=== PATIENT | female | born 1990 | race Caucasian/White ===

== ENCOUNTER 2017-03-09 11:54 | Emergency (ER) | payer MEDICAID ==
--- NOTE | 2017-03-09 12:19 | EDM.PDOC ---
ED HPI GENERAL MEDICAL PROBLEM - General Chief Complaint: Abdominal Pain Stated Complaint: PAIN LOWER LEFT SIDE Time Seen by Provider: 03/09/17 12:19 Source of Information: Reports: Patient History Limitations: Reports: No Limitations - History of Present Illness INITIAL COMMENTS - FREE TEXT/NARRATIVE: 27-year-old female presents to the ED with diffuse left-sided abdominal pain that she awoke with suddenly 2 days ago. pain is continued to be present and is quite severe rates it currently as 9 out of 10. Last night for a while it was 10 out of 10. pain is constant with a colicky component. It hurts to deep breathe on the left side. Pain is felt in the left flank area seems to spread to the left lower quadrant and suprapubic area. states bowel function is normal. It does not relieve or make the pain worse. similarly no urinary tract dysfunction. she reports she was seen in [place] clinic last night and had normal labs and a normal urinalysis reported. she states her last normal menstrual period was back in October. She has oligomenorrhea related to polycystic ovarian disease. Last ultrasound was done about a year ago and revealed no cysts on the ovary. no history of renal lithiasis. No history of previous abdominal surgery. pain is currently 9 out of 10 and is associated with nausea. She is able to eat small quantities of food the last few days. No associated fever or chills. Onset: Sudden Onset Date: 03/07/17 ( awoke with symptoms about 7 in the morning) Duration: Day(s): ( and they have persisted.), Constant, Getting Worse Location: Reports: Abdomen ( left mid and lower quadrant of the abdomen laterally.) Quality: Reports: Ache, Sharp ( pain is constant with occasional colicky sharp stabbing component), Stabbing, Other Severity: Severe Improves with: Reports: None ( current relates her pain as 9 out of 10.), Rest Worsens with: Reports: Movement ( she is walking very slowly.) Context: Denies: Activity ( not moving or breathing.), Exercise, Lifting, Sick Contact, Trauma, Other Associated Symptoms: Reports: Loss of Appetite, Nausea/Vomiting. 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 (see below) Other Treatments DIE MACHINE OPERATOR: nothing Left Abdomen Pain Score (Numeric/FACES): 9 - Related Data Allergies Allergy/AdvReac Type Severity Reaction Status Date / Time No Known Allergies Allergy Verified 03/09/17 12:13 Home Meds: Home Meds Levothyroxine 75 mg PO DAILY 03/09/17 [History] Zolpidem Tartrate [Ambien] 5 mg PO BEDTIME 03/09/17 [History] glyBURIDE [Glyburide] 4 mg PO DAILY 03/09/17 [History] metFORMIN [Glucophage] 1,000 mg PO BID 03/09/17 [History] traMADol [Ultram] 50 mg PO ASDIRECTED 03/09/17 [History] Past Medical History Respiratory History: Reports: Asthma Genitourinary History: Reports: UTI, Recurrent, Other (See Below) Other Genitourinary History: yeast infection. 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 this is being worked up. Psychiatric History: Reports: Anxiety Endocrine/Metabolic History: Reports: Diabetes, Type II ( currently on metformin and glyburide.), Hypothyroidism - Past Surgical History Female Surgical History: Reports: Other (See Below) ED ROS GENERAL - Review of Systems Review Of Systems: See Below Constitutional: Reports: Malaise, Weakness, Fatigue, Decreased Appetite. Denies : Fever, Chills, Weight Loss HEENT: Reports: No Symptoms Respiratory: Reports: No Symptoms, Other Cardiovascular: Reports: No Symptoms ( hurts to date the deep breath on the left side.) Endocrine: Reports: Fatigue, High Glucose ( has type 2 diabetes.) GI/Abdominal: Reports: Abdominal Pain, Decreased Appetite, Nausea. Denies: Vomiting ( the history of present illness) : Reports: No Symptoms, Other ( told that she has polycystic ovarian disease and tends to obviously very irregularly i.e. oligomenorrhea) Musculoskeletal: Reports: Shoulder Pain ( bilateral shoulder pain of unclear etiology) Skin: Reports: No Symptoms Psychiatric: Reports: No Symptoms Hematologic/Lymphatic: Reports: No Symptoms Immunologic: Reports: Seasonal Allergy ED EXAM, GI/ABD - Physical Exam Exam: See Below Exam Limited By: No Limitations General Appearance: Alert, WD/WN, Mild Distress Eyes: Bilateral: Normal Appearance Throat/Mouth: Normal Inspection, Normal Lips, Normal Oropharynx Head: Atraumatic, Normocephalic Neck: Normal Inspection, Supple, Non-Tender, Full Range of Motion. No: Lymphadenopathy (L), Lymphadenopathy (R) Respiratory/Chest: No Respiratory Distress, Lungs Clear, Normal Breath Sounds, No Accessory Muscle Use Cardiovascular: Normal Peripheral Pulses, Regular Rate, Rhythm, No Edema, No Murmur GI/Abdominal Exam: Normal Bowel Sounds, Soft, No Organomegaly, No Abnormal Bruit , No Mass, Pelvis Stable, Tender ( left lower quadrant left), Other. No: Rigid ( tenderness in the left lower quadrant with no rebound tenderness or guarding) , Rebound Back Exam: Normal Inspection, Full Range of Motion. No: CVA Tenderness (L), CVA Tenderness (R), Decreased Range of Motion, Paraspinal Tenderness Extremities: Normal Inspection, Normal Range of Motion, Non-Tender, No Pedal Edema Neurological: Alert, Oriented, CN II-XII Intact, Normal Cognition Psychiatric: Normal Affect, Normal Mood Skin Exam: Warm, Dry, Intact, Normal Color, No Rash Course - Vital Signs Last Recorded V/S: Last Vital Signs Temp 36.2 C 03/09/17 12:21 Pulse 90 03/09/17 12:21 Resp 20 03/09/17 12:21 BP 130/93 H 03/09/17 12:21 Pulse Ox 98 03/09/17 12:21 - Orders/Labs/Meds Orders: Active Orders 24 hr Category Date Time Status Abdomen 1V Flat [CR] Stat Exams 03/09/17 12:31 Taken Ketorolac [Toradol] Med 03/09/17 12:45 Active 30 mg IVPUSH ONETIME Medication Orders Ketorolac Tromethamine (Toradol) 30 mg IVPUSH ONETIME NATHALIE Last Admin: 03/09/17 13:01 Dose: 30 mg Labs: Laboratory Tests 03/09/17 03/09/17 03/09/17 Range/Units 12:44 13:00 13:00 WBC 12.08 H (3.98-10.04) K/mm3 RBC 5.01 (3.98-5.22) M/mm3 Hgb 14.8 (11.2-15.7) gm/L Hct 42.3 (34.1-44.9) % MCV 84.4 (79.4-94.8) fl MCH 29.5 (25.6-32.2) pg MCHC 35.0 (32.2-35.5) g/dl RDW Std Deviation 37.8 (36.4-46.3) fL Plt Count 252 (182-369) K/mm3 MPV 10.4 (9.4-12.3) fl Neutrophils % (Manual) 65 H (40-60) % Band Neutrophils % 0 (0-10) % Lymphocytes % (Manual) 18 L (20-40) % Atypical Lymphs % 7 % Monocytes % (Manual) 9 (2-10) % Eosinophils % (Manual) 1 (0.7-5.8) % Basophils % (Manual) 0 L (0.1-1.2) Platelet Estimate Adequate Plt Morphology Comment Normal RBC Morph Comment Normal Sodium 138 (136-145) mEq/L Potassium 3.8 (3.5-5.1) mEq/L Chloride 102 (98-107) mEq/L Carbon Dioxide 29 (21-32) mEq/L Anion Gap 10.8 (5-15) BUN 14 (7-18) mg/dL Creatinine 0.7 (0.55-1.02) mg/dL Est Cr Clr Drug Dosing 119.62 mL/min Estimated GFR (MDRD) > 60 (>60) mL/min BUN/Creatinine Ratio 20.0 H (14-18) Glucose 301 H (74-106) mg/dL Calcium 9.2 (8.5-10.1) mg/dL Total Bilirubin 0.6 (0.2-1.0) mg/dL AST 15 (15-37) U/L ALT 26 (14-59) U/L Alkaline Phosphatase 91 (46-116) U/L C-Reactive Protein 5.8 H* (<1.0) mg/dL Total Protein 7.4 (6.4-8.2) g/dl Albumin 3.4 (3.4-5.0) g/dl Globulin 4.0 gm/dL Albumin/Globulin Ratio 0.9 L (1-2) Lipase 103 (73-393) U/L HCG, Qual (NEGATIVE) Urine Color Yellow (Yellow) Urine Appearance Clear (Clear) Urine pH 6.0 (5.0-8.0) Ur Specific Faber > or = 1.030 (1.005-1.030) Urine Protein 3+ H (Negative) Urine Glucose (UA) 2+ H (Negative) Urine Ketones 2+ H (Negative) Urine Occult Blood Trace-lysed H (Negative) Urine Nitrite Negative (Negative) Urine Bilirubin 1+ H (Negative) Urine Urobilinogen 0.2 (0.2-1.0) Ur Leukocyte Esterase Negative (Negative) Urine RBC 0-5 (0-5) /hpf Urine WBC 0-5 (0-5) /hpf Ur Epithelial Cells 0-5 (0-5) /hpf Urine Bacteria Few (FEW) /hpf Hyaline Casts 0-5 (0-5) /lpf Urine Mucus Moderate H (FEW) /hpf 03/09/17 Range/Units 13:00 WBC (3.98-10.04) K/mm3 RBC (3.98-5.22) M/mm3 Hgb (11.2-15.7) gm/L Hct (34.1-44.9) % MCV (79.4-94.8) fl MCH (25.6-32.2) pg MCHC (32.2-35.5) g/dl RDW Std Deviation (36.4-46.3) fL Plt Count (182-369) K/mm3 MPV (9.4-12.3) fl Neutrophils % (Manual) (40-60) % Band Neutrophils % (0-10) % Lymphocytes % (Manual) (20-40) % Atypical Lymphs % % Monocytes % (Manual) (2-10) % Eosinophils % (Manual) (0.7-5.8) % Basophils % (Manual) (0.1-1.2) Platelet Estimate Plt Morphology Comment RBC Morph Comment Sodium (136-145) mEq/L Potassium (3.5-5.1) mEq/L Chloride (98-107) mEq/L Carbon Dioxide (21-32) mEq/L Anion Gap (5-15) BUN (7-18) mg/dL Creatinine (0.55-1.02) mg/dL Est Cr Clr Drug Dosing mL/min Estimated GFR (MDRD) (>60) mL/min BUN/Creatinine Ratio (14-18) Glucose (74-106) mg/dL Calcium (8.5-10.1) mg/dL Total Bilirubin (0.2-1.0) mg/dL AST (15-37) U/L ALT (14-59) U/L Alkaline Phosphatase (46-116) U/L C-Reactive Protein (<1.0) mg/dL Total Protein (6.4-8.2) g/dl Albumin (3.4-5.0) g/dl Globulin gm/dL Albumin/Globulin Ratio (1-2) Lipase (73-393) U/L HCG, Qual Negative (NEGATIVE) Urine Color (Yellow) Urine Appearance (Clear) Urine pH (5.0-8.0) Ur Specific Faber (1.005-1.030) Urine Protein (Negative) Urine Glucose (UA) (Negative) Urine Ketones (Negative) Urine Occult Blood (Negative) Urine Nitrite (Negative) Urine Bilirubin (Negative) Urine Urobilinogen (0.2-1.0) Ur Leukocyte Esterase (Negative) Urine RBC (0-5) /hpf Urine WBC (0-5) /hpf Ur Epithelial Cells (0-5) /hpf Urine Bacteria (FEW) /hpf Hyaline Casts (0-5) /lpf Urine Mucus (FEW) /hpf Meds: Medications Generic Name Dose Route Start Last Admin Trade Name Freq PRN Reason Stop Dose Admin Ketorolac Tromethamine 30 mg 03/09/17 12:45 03/09/17 13:01 Toradol IVPUSH 30 mg ONETIME NATHALIE Administration Discontinued Medications Generic Name Dose Route Start Last Admin Trade Name Freq PRN Reason Stop Dose Admin Dicyclomine HCl 20 mg 03/09/17 14:20 Bentyl PO 03/09/17 14:21 ONETIME ONE Hydromorphone HCl 1 mg 03/09/17 12:32 03/09/17 13:03 Dilaudid IVPUSH 03/09/17 12:33 1 mg ONETIME ONE Administration Sodium Chloride 1,000 mls @ 500 mls/hr 03/09/17 12:32 03/09/17 12:59 Normal Saline IV 03/09/17 14:31 500 mls/hr ONETIME ONE Administration Magnesium Citrate 300 ml 03/09/17 14:21 03/09/17 14:53 Citrate Of Magnesia PO 03/09/17 14:22 300 ml ONETIME ONE Administration Metoclopramide HCl 7.5 mg 03/09/17 12:33 03/09/17 12:59 Reglan IVPUSH 03/09/17 12:34 7.5 mg ONETIME ONE Administration - Radiology Interpretation Free Text/Narrative:: 27-year-old female presents to the ED with acute onset of left sided abdominal pain is felt mostly in the lateral abdominal wall almost in the midaxillary line. it does radiate up slightly towards the flank and it does hurt to deep breathing on the left side. pain is spread to the left lower quadrant and suprapubic area over the last 24 hours. suddenly and awoke her from sleep about 0 100 hours March 10. she was seen in [facility] clinic last night and had a negative urinalysis and negative lab work apparently. no x-rays or imaging studies were carried out. by history she has polycystic ovarian disease with last normal menstrual period in October. She does not use any form of contraception. She is a type II diabetic taking metformin and glyburide. Also the present in all 4 quadrants tenderness in the left lower quadrant but no peritoneal signs evident. My initial impression is likely ruptured ovarian cyst. Plan 1 view of the abdomen to be done routine labs to include a serum lipase level. CRP and a urinalysis and an hCG. IV normal saline started at 500 mils per hour given Dilaudid 1 mg IV with Reglan 7.5 mg IV and Toradol 30 mg IV for acute pain relief. - Re-Assessments/Exams Free Text/Narrative Re-Assessment/Exam: 03/09/17 13:50 labs reveal an elevated white count at 12.08. Differential is pending hemoglobin is 14.8 hematocrit of 42.3. plan is to 52,000. Chemistry shows sodium 1:30 potassium 3.8 chloride 102 bicarbonate 29 and a gap is 10.8 glucose is elevated at 301 of note she is a type II diabetic urinalysis is clear. CRP is elevated at 5.8. beta-hCG is negative. Lipase 103. KUB reveals increased stool throughout the entire colon but left hemicolon is very densely impacted with stool down to the rectal vault. 03/09/17 14:21 patient reports that she's been feeling much improved after IV medications were given. Advised of the findings of normal laboratory work up.Lt hemicolon constipation on x-ray suggesting constipation is the source of her problem. she will be given Bentyl 20 mg by mouth. She lives in [place] which [place] miles away therefore will receive a bottle of Citroma to drink when she gets home. Going to have her take the full 10 ounces because of the extent of her constipation. She will mix with 5-6 ounces of juice of choice. follow-up if abdominal pain not markedly improved after bowel cleanse. Departure - Departure Time of Disposition: 14:23 Disposition: Home, Self-Care 01 Condition: Fair Clinical Impression: Constipation by delayed colonic transit Abdominal pain Qualifiers: Abdominal location: left lower quadrant Qualified Code(s): R10.32 - Left lower quadrant pain - Discharge Information Instructions: Constipation, Adult Referrals: Ana Judd MD [Primary Care Provider] - Forms: ED Department Discharge Additional Instructions: evaluation the emergency room today in regards to persistent left sided abdominal pain rating down to the groin and up towards the diaphragm for the last 2 days. no associated vomiting but nausea from the intensity of the pain. for laboratory workup carried out in the ED today reveals a slightly elevated white count but normal differential of the white blood cells that do not suggest infection white count is up due to stress response or pain response. urinalysis was clean chemistry is completely normal. x-ray of the abdomen reveals a lot of stool throughout the entire colon but particularly the left hemicolon is packed up pretty solid. treatment is therefore oral Citroma or magnesium citrate 10 ounces mixed with 6 ounces of juice of choice taken by mouth once. This usually starts to work in 1-2 hours and will make her bowels move anywhere between 4 and 6 times often ending in some diarrhea. It should be provide complete relief of abdominal pain. You're given Bentyl 20 mg before discharge to help alleviate any further abdominal cramping pain until you can get back to [place]. Abdominal pain should be completely relieved by bowel cleanse. If not you should be reviewed again tomorrow. Constipation issues continue then I would suggest purchasing some MiraLAX powder which is an over- the-counter medication take 17 g or 1 scoop daily to prevent constipation from reoccurring. - My Orders Last 24 Hours: My Active Orders 03/09/17 12:31 Abdomen 1V Flat [CR] Stat 03/09/17 12:45 Ketorolac [Toradol] 30 mg IVPUSH ONETIME - Assessment/Plan Last 24 Hours: My Active Orders 03/09/17 12:31 Abdomen 1V Flat [CR] Stat 03/09/17 12:45 Ketorolac [Toradol] 30 mg IVPUSH ONETIME
[2017-03-09 12:23] VITALS: BP 130/93
[2017-03-09] MEDS ORDERED: Sodium Chloride 0.9% 1,000 ML IV ONE (12:32)
[2017-03-09] MEDS ORDERED: HYDROmorphone 1 MG/ML Syringe IVPUSH ONE (12:32)
[2017-03-09] MEDS ORDERED: Metoclopramide 10 MG/2 ML SDV IVPUSH ONE (12:33)
[2017-03-09] MEDS ORDERED: Ketorolac 30 MG/ML SDV IVPUSH SCH (12:45)
[2017-03-09] MEDS ORDERED: Dicyclomine 10 MG Cap PO ONE (14:20)
[2017-03-09] MEDS ORDERED: Magnesium Citrate Solution 296 ML Bottle PO ONE (14:21)
--- NOTE | 2017-03-10 18:00 | CR ---
Abdomen: Supine view of the abdomen was obtained. Comparison: No previous study. Slight increased stool is noted within the colon. Bowel gas pattern is otherwise unremarkable. Calcifications are seen within the pelvis which are compatible with phleboliths. Minimal arterial vascular calcification is noted within the pelvis. No discrete soft tissue abnormality is appreciated. Bony structures are within normal limits for the patient's age. Impression: 1. Slight increased stool within the colon. Other incidental findings. Diagnostic code #2
== END 2017-03-09 14:55 | disposition home or self-care (01) ==
LOC: JD.ED 11:54 → SUPCPDRO 11:54 → JD.ED 14:55
DX: K59.01 Slow transit constipation (principal); J45.909 Unspecified asthma, uncomplicated; E11.9 Type 2 diabetes mellitus without complications; Z79.899 Other long term (current) drug therapy; Z79.84 Long term (current) use of oral hypoglycemic drugs; Z87.440 Personal history of urinary (tract) infections
CPT/HCPCS: 36415; 74000; 80053; 81001; 83690; 84703; 85025; 86140; 96361; 96374; 96375; 99284; A9270; J1170; J1885; J2765; J7040; 99283

== ENCOUNTER 2017-04-17 09:01 | Day surgery (SDC) | payer MEDICAID ==
[~2017-04-17 09:01] MED LIST: Lidocaine 1%/Sod Bicarbonate in NS 8.4% 1 ML Syringe PRN; Sodium Chloride 0.9% 10 ML Syringe FLUSH PRN
--- NOTE | 2017-04-17 09:39 | PCM.PREANE ---
Preanesthetic Assessment - Procedure Proposed Procedure: bilateral shoulder manipulation and bilteral cortisone injections - Anesthesia/Transfusion/Family Hx Anesthesia History: Prior Anesthesia Without Reaction Family History of Anesthesia Reaction: No Transfusion History: No Prior Transfusion(s) - Review of Systems General: No Symptoms Pulmonary: No Symptoms Cardiovascular: No Symptoms Gastrointestinal: No Symptoms Neurological: No Symptoms Other: Reports: Easy Bruising, Diabetes, Thyroid Problems - Physical Assessment NPO Status Date: 04/16/17 NPO Status Time: 19:00 Pulse: 97 O2 Sat by Pulse Oximetry: 96 Respiratory Rate: 16 Blood Pressure: 130/89 Temperature: 97.1 F Height: 5 ft 8 in Weight: 77.111 kg ASA Class: 2 Mental Status: Alert & Oriented x3 Airway Class: Mallampati = 1 Dentition: Reports: Normal Dentition Thyro-Mental Finger Breadths: 3 Mouth Opening Finger Breadths: 3 ROM/Head Extension: Limited/Partial (stiff from shoulders) Lungs: Clear to Auscultation, Normal Respiratory Effort Cardiovascular: Regular Rate, Regular Rhythm - Lab Values: Laboratory Last Values POC Glucose 156 mg/dL (70-105) H 04/17/17 09:06 Urine HCG, Qual Negative (NEGATIVE) 04/17/17 09:10 - Imaging/EKG Impressions: 04/08/17 EKG slight right axis deviation and mild sinus tachy with hr or 96 - Allergies Allergies/Adverse Reactions: Allergies Allergy/AdvReac Type Severity Reaction Status Date / Time cat dander Allergy Cannot Verified 04/16/17 11:05 Remember - Blood Blood Available: No - Acknowledgements Anesthesia Type Planned: General Anesthesia Pt an Appropriate Candidate for the Planned Anesthesia: Yes Alternatives and Risks of Anesthesia Discussed w Pt/Guardian: Yes Pt/Guardian Understands and Agrees with Anesthesia Plan: Yes PreAnesthesia Questionnaire HEENT History: Reports: None Cardiovascular History: Reports: None Respiratory History: Reports: Asthma (exercise induced- has grown out of it) Gastrointestinal History: Reports: Other (See Below) Other Gastrointestinal History: splenic infarction Genitourinary History: Reports: UTI, Recurrent, Other (See Below) Other Genitourinary History: yeast infection. 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 Musculoskeletal History: Reports: Other (See Below) Other Musculoskeletal History: R toe pain, bilateral shoulder pain Neurological History: Reports: Neuropathy, Peripheral (feet) Psychiatric History: Reports: Anxiety, Other (See Below) Other Psychiatric History: insomnia Endocrine/Metabolic History: Reports: Diabetes, Type II, Hypothyroidism Hematologic History: Reports: None Immunologic History: Reports: None Oncologic (Cancer) History: Reports: None Dermatologic History: Reports: Other (See Below) Other Dermatologic History: Right foot ulcer, onchomycosis, corn/callous - Past Surgical History Head Surgeries/Procedures: Reports: None HEENT Surgical History: Reports: Oral Surgery Cardiovascular Surgical History: Reports: None Respiratory Surgical History: Reports: None GI Surgical History: Reports: None Female Surgical History: Reports: Other (See Below) Endocrine Surgical History: Reports: None Neurological Surgical History: Reports: None Musculoskeletal Surgical History: Reports: None Oncologic Surgical History: Reports: None - SUBSTANCE USE Smoking Status *Q: Current Every Day Smoker Tobacco Use Within Last Twelve Months: Cigarettes Second Hand Smoke Exposure: Yes Days Per Week of Alcohol Use: 1 (once or twice a month) Recreational Drug Use History: No - HOME MEDS Home Medications: Home Meds Zolpidem Tartrate [Ambien] 5 mg PO BEDTIME 03/09/17 [History] metFORMIN [Glucophage] 1,000 mg PO BID 03/09/17 [History] Apixaban [Eliquis] 5 mg PO BID 04/16/17 [History] Glimepiride [Amaryl] 4 mg PO DAILY 04/16/17 [History] Insulin Glarg,Human.Rec.Analog [LantUS Solostar] 20 units SQ QAM 04/16/17 [ History] - CURRENT (IN HOUSE) MEDS Current Meds: Current Medications Lactated Ringer's (Ringers, Lactated) 1,000 mls @ 125 mls/hr IV ASDIRECTED NATHALIE Stop: 04/17/17 23:00 Lidocaine/Sodium Bicarbonate (Buffered Lidocaine 1% In Ns 8.4%) 0.25 ml .XX ONETIME PRN PRN Reason: Prior to IV Start Stop: 04/17/17 18:00 Sodium Chloride (Saline Flush) 10 ml FLUSH ASDIRECTED PRN PRN Reason: Keep Vein Open Stop: 04/17/17 18:00
[2017-04-17] MEDS: Lactated Ringers 1,000 ML IV SCH ×2 (09:40→11:54)
[2017-04-17] MEDS ORDERED: Triamcinolone Acetonide 40 MG/ML 1 ML MDV ONE (10:33)
[2017-04-17] MEDS ORDERED: Bupivacaine 0.25% 30 ML SDV ONE (10:33)
[2017-04-17] MEDS ORDERED: Propofol 200 MG/20 ML SDV ONE (10:49)
[2017-04-17] MEDS ORDERED: Ketamine 500 mg/10 ML MDV ONE (10:49)
[2017-04-17] MEDS ORDERED: Lidocaine 1% 4 ML ONE (10:49)
[2017-04-17] MEDS ORDERED: Midazolam 1 MG/ML 2 ML SDV ONE (10:50)
[2017-04-17] MEDS ORDERED: fentaNYL 250 MCG/5 ML SDV ONE (10:53)
[2017-04-17] MEDS ORDERED: fentaNYL 100 MCG/2 ML SDV ONE (11:16)
[2017-04-17] MEDS ORDERED: Ondansetron 4 MG/2 ML SDV IVPUSH PRN (11:21)
[2017-04-17] MEDS ORDERED: HYDROmorphone 0.5 MG/0.5 ML Syringe IVPUSH PRN (11:21)
--- NOTE | 2017-04-17 11:25 | PCM.POSTAN ---
POST ANESTHESIA ASSESSMENT - MENTAL STATUS Mental Status: Alert, Oriented - VITAL SIGNS Pulse Rate: 103 SaO2: 100 Resp Rate: 12 Blood Pressure: 158/98 Temperature: 36.0 C - RESPIRATORY Respiratory Status: Respiratory Rate WNL, Airway Patent, O2 Saturation Stable, Supplemental Oxygen - CARDIOVASCULAR CV Status: Pulse Rate WNL, Blood Pressure Stable - GASTROINTESTINAL GI Status: No Symptoms - PAIN Pain Score: 0 - POST OP HYDRATION Hydration Status: Adequate & Stable
[2017-04-17] MEDS: fentaNYL 100 MCG/2 ML SDV IVPUSH PRN ×2 (11:30→11:40)
[2017-04-17] MEDS ORDERED: traMADol 50 MG Tab PO ONE (12:15)
[2017-04-17 12:57] VITALS: BP 122/71
--- NOTE | 2017-04-22 06:59 | PCM.OPNOTE ---
- General Post-Op/Procedure Note Date of Surgery/Procedure: 04/17/17 Operative Procedure(s): bilateral shoulder manipulation with intra-articular glenohumeral steroid injections Pre Op Diagnosis: bilateral shoulder adhesive capsulitis Post-Op Diagnosis: Same Anesthesia Technique: MELINA Primary Surgeon: Alon Hauser Anesthesia Provider: Hu Miner Aerospace Mechanic: Aiyana Chawla EBL in mLs: 0 Complications: None Condition: Good
--- NOTE | 2017-04-22 07:32 | OR ---
DATE OF OPERATION: 04/17/2017 SURGEON: Alon Hauser MD OPERATION PERFORMED: Bilateral shoulder manipulation with intraarticular glenohumeral steroid injections. PREOPERATIVE DIAGNOSIS: Bilateral shoulder adhesive capsulitis. POSTOPERATIVE DIAGNOSIS: Bilateral shoulder adhesive capsulitis. ANESTHESIA: MAC. ANESTHESIA PROVIDER: Hu Miner. SEED PACKER: Aiyana Chawla PA-C. ESTIMATED BLOOD LOSS: 0. COMPLICATIONS: None. CONDITION: Stable. DESCRIPTION OF PROCEDURE: The patient was identified in the preop holding area. Proper site was marked and identified by the surgeon. The patient was taken back to the operative theater where adequate anesthesia, the patient underwent MAC sedation. The patient was noted to have significantly adhesed glenohumeral joints. She had roughly only 10 degrees of external rotation even under anesthesia. She had roughly 80 degrees of forward elevation. At this time, manipulation was undertaken of both shoulders. Under manipulation, the patient was noted to have significantly adhesed glenohumeral joints with audible stretching of the glenohumeral ligaments and capsule. The patient was able to be manipulated up to 170 degrees of forward elevation and abduction and external rotation to 70 degrees bilaterally. The right one was noted to be significantly more adhesed at the beginning than the left. After this was completed under sterile technique, 2 mL of 40 mg Kenalog and 4 mL of 0.25% Marcaine were injected to both the right and left glenohumeral joints under sterile technique. The patient tolerated these procedures well and sent to the PACU in stable condition. We will begin physical therapy immediately. MMODAL /[id number]
== END 2017-04-17 12:45 | disposition home or self-care (01) ==
LOC: JD.SDS 09:01
PROVIDERS: ATTEND Orthopaedic Surgery
DX: M75.02 Adhesive capsulitis of left shoulder (principal); M75.01 Adhesive capsulitis of right shoulder; E03.9 Hypothyroidism, unspecified; L97.511 Non-pressure chronic ulcer of other part of right foot limited to breakdown of skin; E11.621 Type 2 diabetes mellitus with foot ulcer; Z79.4 Long term (current) use of insulin; Z79.899 Other long term (current) drug therapy; J30.81 Allergic rhinitis due to animal (cat) (dog) hair and dander; Z98.890 Other specified postprocedural states; F17.210 Nicotine dependence, cigarettes, uncomplicated
CPT/HCPCS: 20610; 23700; 81025; 82962; A9270; J1170; J2250; J3010; J3301; J3490; J7120; 01620; J2704